=== PATIENT | female | born 1970 | race Caucasian/White ===

== ENCOUNTER 2019-07-30 17:01 | Emergency (ER) | payer OTHER ==
[2019-07-30] MEDS ORDERED: NA CHLORIDE 0.9% 500 ML ONE (17:55)
[2019-07-30] MEDS ORDERED: ONDANSETRON 4 MG/2 ML VIAL ONE (17:55)
[2019-07-30] MEDS ORDERED: FAMOTIDINE 20 MG/2 ML VIAL IV ONE (17:55)
[2019-07-30] MEDS ORDERED: MORPHINE 4 MG/ML SYR ONE ×2 (17:55→18:58)
[2019-07-30 18:01] LABS: Absolute Lymphocytes (CBC) 1.3 K/uL (0.7-4.9); Basophils % 0.2 % (0-1.3); Hematocrit 46.8 % (36.0-45.0); Lymphocytes % 7.6 % (15.3-44.8); RBC Red Blood Cell Count 5.08 M/uL (3.86-4.86)
[2019-07-30 18:26] LABS: Urine Blood NEGATIVE (NEG); Urine Glucose 2+ (NEG); Urine Protein 2+ (NEG)
[2019-07-30 18:27] LABS: Albumin 3.7 g/dL (3.4-5.0); Bilirubin Direct 1.3 mg/dL (0-0.2); Bilirubin Total 3.5 mg/dL (0.2-1.0); Potassium 3.7 mmol/L (3.5-5.1); Protein, Total 7.5 g/dL (6.4-8.2); Troponin I 0.04 ng/mL (0.0-0.045)
[2019-07-30 18:58] LABS: Blood Morphology Comment NOT SEEN (NOT SEEN); Platelet Estimate ADEQ; Urine White Blood Cell Casts OK
--- NOTE | 2019-07-30 19:20 | RAD REPORT ---
EXAM DESCRIPTION: CT - Abdomen Pelvis W Contrast - 07/30/2019 6:41 pm CLINICAL HISTORY: ABD PAIN COMPARISON: No comparisons TECHNIQUE: Biphasic, helical CT imaging of the abdomen and pelvis was performed following 100 ml non -ionic IV contrast. Oral contrast was given. All CT scans are performed using dose optimization technique as appropriate and may include automated exposure control or mA/KV adjustment according to patient size. FINDINGS: No suspicious findings in the lung bases. Heart size is prominent. No pericardial effusion . Enhancement of the solid abdominal viscera suggest a component of diminished cardiac function. Liver shows a somewhat mottled enhancement pattern believed to be related in part to decreased cardia c function. The initial 2 cm of the common hepatic artery show absent or substantially diminished enh ancement during arterial phase imaging. More distal hepatic artery branches opacify with contrast. No infarcted hepatic parenchyma seen. The liver has a slightly nodular contour. No focal lesion of the hepatic parenchyma. No portal vein thrombus. Far peripheral branches of the splenic artery in the spl enic hilum show absent or diminished enhancement on arterial phase imaging. Patient has dense calcifi cation in this region. The spleen shows very abnormal diminished enhancement. There is only a small p ortion of the medial superior spleen and very small patches if the inferior spleen that show normal e nhancement. No pancreatic or peripancreatic abnormality. Gallbladder is absent. Biliary tree within normal limits . Renal function is symmetric. There is no hydronephrosis or pyelonephritis. Origin of the right renal artery shows prominent atherosclerotic change and probable stenosis. Multiple areas of cortical thinn ing or cortical loss noted along the lateral right kidney. No acute stranding or edema. No obstructin g or nonobstructing calculi. No bladder abnormalities. No adrenal abnormalities. No gastric dilatation or gastric wall thickening. No dilated large or small bowel loops. No edema see n in the parra of the large or small bowel. Of the superior mesenteric artery shows no significant di sease and the origin of the celiac artery is intact. Patient has a patent inferior mesenteric artery. Mesenteric ischemia findings are not seen. No free air, free fluid or inflammatory stranding. No hernia, mass or bulky lymphadenopathy. Uterus and ovaries show no suspicious findings. No suspicious bony findings. Findings telephoned to the referring clinician 7:16 p.m.. IMPRESSION: No bowel obstruction free air or surgically emergent soft tissue finding. Clinic infarction pattern is present involving approximately 80% of the splenic parenchyma. Peripher al branches of the splenic artery show prominent atherosclerotic change with areas of occlusion or si gnificant flow restriction. The initial 2 cm of the common hepatic artery show occlusion or high-grade stenosis. More peripheral branches opacify with contrast. Origin of the celiac artery, the superior mesenteric artery in the inferior mesenteric artery are pat ent and without significant finding. Mesenteric ischemia of the bowel on not suspected. Extensive cortical loss involving the lateral aspect of the right kidney. The right renal artery show s significant atherosclerotic change and probable stenosis. Renal parenchymal loss could be from infa rction or prior infection. Liver has a mottled enhancement pattern without a focal lesion. This is probably a combination of the compromised vasculature and cardiac function.
--- NOTE | 2019-07-30 19:33 | RAD REPORT ---
EXAM DESCRIPTION: RAD - Chest Single View - 07/30/2019 7:08 pm CLINICAL HISTORY: CHEST PAIN, abdominal pain COMPARISON: No comparisons TECHNIQUE: AP portable chest image was obtained 07/30/2019 7:08 pm . FINDINGS: No peripheral mass or consolidation. Patient has pronounced cardiomegaly. Sternotomy wires are in place. Upper lobe vasculature within normal limits. Significant failure or volume overload ar e not suspected. No measurable pleural effusion and no pneumothorax. No acute bony abnormality seen. No acute aortic findings suspected. IMPRESSION: Prominent cardiomegaly without acute failure or volume overload findings.
[2019-07-30] MEDS ORDERED: CEFTRIAXONE/SWI 1gm 1 GM/10 ML SYR ONE (20:09)
[2019-07-30] MEDS ORDERED: LABETALOL 20 MG/4ML SYRINGE IV ONE (20:10)
[2019-07-30] MEDS ORDERED: HYDROMORPHONE HCL 2 MG/ML inj ONE (20:57)
--- NOTE | 2019-07-31 00:51 | ER ---
Nurse's Notes [facility] Name: Maricarmen Gupta Age: 49 yrs Sex: Female : 1970 Arrival Date: 07/30/2019 Time: 17:05 Bed 30 Private MD: Diagnosis: Splenic Infarction;Abdominal and pelvic pain Presentation: 07/30 17:08 Presenting complaint: Patient states: i am having abdominal pain that started around tw2 1pm today, nauseous and little bit of vomiting, like 3 times, i thought that it was my medication sitting and they are treating me for a possible rejection, i have a heart transplant, got it in 1997, i saw the doctor 2 weeks. Transition of care: patient was not received from another setting of care. Onset of symptoms was July 30, 2019. Risk Assessment: Do you want to hurt yourself or someone else? Patient reports no desire to harm self or others. Initial Sepsis Screen: Does the patient meet any 2 criteria? No. Patient's initial sepsis screen is negative. Does the patient have a suspected source of infection? No. Patient's initial sepsis screen is negative. Care prior to arrival: None. 17:08 Method Of Arrival: Ambulatory tw2 17:08 Acuity: HENRRY 2 tw2 Triage Assessment: 17:09 General: Appears uncomfortable, well groomed, Behavior is calm, cooperative, tw2 appropriate for age, quiet. Pain: Complains of pain in left upper quadrant and left lower quadrant. GI: Reports lower abdominal pain, upper abdominal pain, nausea. 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 tw2 Historical: - Allergies: 17:11 No Known Allergies; tw2 - Home Meds: 17:19 lamotrigine 200 mg oral tab 1 tab 2 times per day [Active]; duloxetine 30 mg oral cpDR tw2 1 cap once daily [Active]; rosuvastatin 10 mg oral tab 1 tab once daily [Active]; metoprolol tartrate 100 mg Oral tab 1 tab 2 times per day [Active]; prednisone 5 mg Oral tab once daily [Active]; lisinopril 20 mg Oral tab 1 tab once daily [Active]; zolpidem 5 mg Oral tab 0.5 tab once daily [Active]; levothyroxine 175 mcg tab 1 tab once daily [Active]; aspirin 81 mg Oral chew 1 tab once daily [Active]; lamotrigine 200 mg oral tab 0.5 tab 2 times per day [Active]; Levemir 100 unit/mL subcutaneous soln [Active]; - PMHx: 17:11 CHF; tw2 17:19 Diabetes - IDDM; Hyperlipidemia; Hypertension; tw2 - PSHx: 17:11 heart transplant; tw2 - Immunization history:: Adult Immunizations. - Coronavirus screen:: The patient has NOT traveled to [place], [place], or [place] in the past 14 days. - Social history:: Smoking status: . - Ebola Screening: : Patient denies travel to an Ebola-affected area in the 21 days before illness onset. Screenin:40 Abuse screen: Denies threats or abuse. Nutritional screening: No deficits noted. tw2 Tuberculosis screening: No symptoms or risk factors identified. Fall Risk None identified. Assessment: 17:59 GI: Bowel sounds present X 4 quads. Abdomen is tender to palpation in left upper ls4 quadrant. 18:14 Reassessment: Patient and/or family updated on plan of care and expected duration. Pain ls4 level reassessed. Patient is alert, oriented x 3, equal unlabored respirations, skin warm/dry/pink. pt pain improving. Pt has nausea. General: Appears uncomfortable. Neuro: No deficits noted. Cardiovascular: Denies chest pain, Capillary refill < 3 seconds Clubbing of nail beds is absent JVD is absent Patient's skin is warm and dry. Rhythm is sinus arrythmia. : No deficits noted. Derm: Skin is pink, warm \T\ dry. Musculoskeletal: No deficits noted. 21:42 Reassessment: Patient appears in no apparent distress at this time. Patient and/or ls4 family updated on plan of care and expected duration. Pain level reassessed. Patient is alert, oriented x 3, equal unlabored respirations, skin warm/dry/pink. Patient states symptoms have improved. Respiratory: Airway is patent Respiratory effort is even, unlabored, Respiratory pattern is regular. 22:25 Reassessment: Patient appears in no apparent distress at this time. Patient and/or ls4 family updated on plan of care and expected duration. Pain level reassessed. Patient is alert, oriented x 3, equal unlabored respirations, skin warm/dry/pink. 23:30 Reassessment: Patient appears in no apparent distress at this time. Patient and/or ls4 family updated on plan of care and expected duration. Pain level reassessed. Patient is alert, oriented x 3, equal unlabored respirations, skin warm/dry/pink. Pain: Complains of pain in left upper quadrant Pain currently is 3 out of 10 on a pain scale. 07/31 01:58 Reassessment: Pt is A\T\O x 4, resp unlabored, IV site intact, EMS at bedside for bb transfer to [facility]. Vital Signs: 07/30 17:10 BP 158 / 101; Pulse 69; Resp 17; Temp 97.9(O); Pulse Ox 99% on R/A; Weight 75.75 kg tw2 (R); Height 5 ft. 3 in. (160.02 cm); Pain 10/10; 18:00 BP 158 / 98; Pulse 72; Resp 16; Pulse Ox 100% on R/A; Pain 8/10; ls4 19:00 BP 164 / 97; Pulse 71; Resp 16; Temp 98.0; Pulse Ox 99% on R/A; Pain 5/10; ls4 20:00 BP 166 / 107; Pulse 72; Resp 14; Temp 98.0; Pulse Ox 99% on R/A; Pain 5/10; ls4 20:44 BP 151 / 96; Pulse 72; Resp 16; Pulse Ox 99% on R/A; Pain 5/10; ls4 21:42 BP 139 / 84; Pulse 73; Resp 14; Pulse Ox 99% on R/A; Pain 3/10; ls4 22:25 BP 124 / 78; Pulse 72; Resp 16; Pulse Ox 100% on R/A; Pain 3/10; ls4 23:41 BP 126 / 81; Pulse 72; Resp 14; Temp 98.0; Pulse Ox 99% on R/A; Pain 3/10; ls4 07/31 01:57 BP 127 / 58; Pulse 72; Resp 16 S; Temp 97.9(O); Pulse Ox 100% on 4 lpm NC; bb 07/30 17:10 Body Mass Index 29.58 (75.75 kg, 160.02 cm) tw2 ED Course: 07/30 17:05 Patient arrived in ED. mr 17:09 Triage completed. tw2 17:09 Arm band placed on. tw2 17:11 Bed in low position. Call light in reach. Side rails up X 1. Adult w/ patient. tw2 17:12 Kailash Sanderson [facility]NP-C [facility]. la1 17:12 Angelo Caruso MD is Attending Physician. la1 17:26 Alana Weinberg, RN is Primary Nurse. ls4 17:47 Basic Metabolic Panel Sent. ls4 17:47 CBC with Diff Sent. ls4 17:47 Creatinine for Radiology Sent. ls4 17:48 Hepatic Function Sent. ls4 17:48 Lipase Sent. 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 Pulse ox on. NIBP on. Warm blanket given. Diet: Patient is NPO. ls4 17:57 No provider procedures requiring assistance completed. Initial lab(s) drawn, by me, ls4 sent to lab. Urine collected: clean catch specimen, clear, EKG done, by ED staff. Inserted saline lock: 20 gauge in left antecubital area, using aseptic technique. Blood collected. 17:57 Patient maintains SpO2 saturation greater than 95% on room air. ls4 18:13 Troponin I Sent. ls4 18:37 Urine --Ancillary (enter results) Sent. mh5 18:38 Flu Sent. mh5 18:38 Urine Dipstick--Ancillary (enter results) Sent. mh5 18:38 Flu and/or RSV swab sent to lab. 5 21:28 initiated transfer with EVERETT randall to [facility]. She told me to send proof of patients old mw2 last name to verify it is the same patient. 22:21 called to get update on transfer to the [facility] Kathy stated she needed clinicals on patient. mw2 clinicals faxed. 22:41 Called [facility] to get update on Transfer [facility] said they have the clinicals in the ED waiting mw2 to get reviewed. 07/31 00:12 called [facility] spoke with Royal he said they are waiting for the to review the clinicals. mw2 02:00 Patient transferred, IV remains in place. bb Administered Medications: 07/30 17:50 Drug: morphine 4 mg Route: IVP; Site: left antecubital; ls4 18:20 Follow up: Response: No adverse reaction; Marked relief of symptoms ls4 17:50 Drug: Zofran 4 mg Route: IVP; Site: left antecubital; ls4 18:20 Follow up: Response: No adverse reaction; Marked relief of symptoms ls4 17:50 Drug: Pepcid 20 mg Route: IVP; Site: left antecubital; ls4 17:50 Drug: NS 0.9% 500 ml Route: IV; Rate: bolus; Site: left antecubital; ls4 18:57 Drug: morphine 4 mg Route: IVP; Site: left antecubital; ls4 19:30 Follow up: Response: No adverse reaction; Marked relief of symptoms ls4 20:03 Not Given (Duplicate Order): Rocephin 1 grams IV at calculated rate once; Given slow IV la1 push per pharmacy instructions 20:14 Drug: Rocephin 1 grams Route: IV; Rate: calculated rate; Site: left antecubital; ls4 21:00 Follow up: Response: No adverse reaction ls4 20:15 Drug: Labetalol 5 mg Route: IVP; Infused Over: 2 mins; Site: left antecubital; ls4 20:58 Follow up: Response: No adverse reaction; Marked relief of symptoms ls4 21:00 Follow up: Response: No adverse reaction; Blood pressure is lowered ls4 20:58 Drug: Dilaudid 0.5 mg Route: IVP; Site: left antecubital; ls4 Outcome: 02 00:51 ER care complete, transfer ordered by la1 01:59 Transferred by ground EMS to [facility] Transfer form completed. bb X-rays sent w/ patient. 01:59 Condition: stable 01:59 Instructed on the need for transfer. 02:00 Patient left the ED. bb Signatures: Jacqui Blackwell Brenda RN RN bb Kailash Sanderson, TUBE KNITTER-C TUBE KNITTER-Cla1 Kanika Menchaca RN RN tw2 Sherrie Reyes [address]SahshaSaint Joseph'S Hospitalbhavya 2 Alana Weinberg RN RN ls4 Corrections: (The following items were deleted from the chart) 07/30 17:15 17:08 Acuity: HENRRY 3 tw2 tw2
--- NOTE | 2019-07-31 00:52 | EDPHYS ---
Physician Documentation [facility] Name: Maricarmen Gupta Age: 49 yrs Sex: Female : 1970 Arrival Date: 07/30/2019 Time: 17:05 Bed 30 Private MD: ED Physician Angelo Caruso HPI: 07/30 17:34 This 49 yrs old Female presents to ER via Ambulatory with complaints of la1 Abdominal Pain, Vomiting. 17:34 The patient presents with abdominal pain in the upper abdomen, in the left upper la1 quadrant. Onset: The symptoms/episode began/occurred today. The symptoms radiate to the left flank. Associated signs and symptoms: Pertinent positives: nausea. The symptoms are described as sharp. Modifying factors: The symptoms are alleviated by nothing, the symptoms are aggravated by touching the area. Severity of pain: At its worst the pain was moderate. The patient has not experienced similar symptoms in the past. pt reports she began having left sided abd pain shortly after taking her prednisone for anti rejection. reports pain is now constant and worsening with nausea. 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 tw2 Historical: - Allergies: 17:11 No Known Allergies; tw2 - Home Meds: 17:19 lamotrigine 200 mg oral tab 1 tab 2 times per day [Active]; duloxetine 30 mg oral cpDR tw2 1 cap once daily [Active]; rosuvastatin 10 mg oral tab 1 tab once daily [Active]; metoprolol tartrate 100 mg Oral tab 1 tab 2 times per day [Active]; prednisone 5 mg Oral tab once daily [Active]; lisinopril 20 mg Oral tab 1 tab once daily [Active]; zolpidem 5 mg Oral tab 0.5 tab once daily [Active]; levothyroxine 175 mcg tab 1 tab once daily [Active]; aspirin 81 mg Oral chew 1 tab once daily [Active]; lamotrigine 200 mg oral tab 0.5 tab 2 times per day [Active]; Levemir 100 unit/mL subcutaneous soln [Active]; - PMHx: 17:11 CHF; tw2 17:19 Diabetes - IDDM; Hyperlipidemia; Hypertension; tw2 - PSHx: 17:11 heart transplant; tw2 - Immunization history:: Adult Immunizations. - Coronavirus screen:: The patient has NOT traveled to [place], [place], or [place] in the past 14 days. - Social history:: Smoking status: . - Ebola Screening: : Patient denies travel to an Ebola-affected area in the 21 days before illness onset. ROS: 17:36 Constitutional: Negative for fever, chills, and weight loss, Eyes: Negative for injury, la1 pain, redness, and discharge, ENT: Negative for injury, pain, and discharge, Neck: Negative for injury, pain, and swelling, Cardiovascular: Negative for chest pain, palpitations, and edema, Respiratory: Negative for shortness of breath, cough, wheezing, and pleuritic chest pain, Back: Negative for injury and pain, : Negative for injury, bleeding, discharge, and swelling, MS/Extremity: Negative for injury and deformity, Neuro: Negative for headache, weakness, numbness, tingling, and seizure. Exam: 17:37 Head/Face: Normocephalic, atraumatic. Eyes: extra-ocular motions intact. Periorbital la1 areas with no swelling, redness, or edema. ENT: Mucous membranes moist. Neck: Trachea midline,Supple, Chest/axilla: Normal chest wall appearance and motion. Nontender with no deformity. No lesions are appreciated. Cardiovascular: Regular rate and rhythm with a normal S1 and S2. Respiratory: Lungs have equal breath sounds bilaterally, clear to auscultation 17:37 Back: No spinal tenderness. No costovertebral tenderness. Full range of motion. Skin: Warm, dry with normal turgor. Normal color with no rashes, no lesions, and no evidence of cellulitis. MS/ Extremity: Pulses equal, no cyanosis. Neurovascular intact. Full, normal range of motion. Neuro: Awake and alert, GCS 15, oriented to person, place, time, and situation. Normal gait. 17:37 Constitutional: The patient appears alert, awake, uncomfortable. 17:37 Abdomen/GI: Inspection: abdomen appears normal, Bowel sounds: normal, in all quadrants, Palpation: soft, in all quadrants, mild abdominal tenderness, in the suprapubic area, left upper quadrant and left lower quadrant, Indicators: McBurney's point is not tender, Mejia's sign is negative, Rovsing's sign is negative, Obturator sign is negative, Psoas sign is negative. 18:02 ECG was reviewed by the Attending Physician. la1 Vital Signs: 17:10 BP 158 / 101; Pulse 69; Resp 17; Temp 97.9(O); Pulse Ox 99% on R/A; Weight 75.75 kg tw2 (R); Height 5 ft. 3 in. (160.02 cm); Pain 10/10; 18:00 BP 158 / 98; Pulse 72; Resp 16; Pulse Ox 100% on R/A; Pain 8/10; ls4 19:00 BP 164 / 97; Pulse 71; Resp 16; Temp 98.0; Pulse Ox 99% on R/A; Pain 5/10; ls4 20:00 BP 166 / 107; Pulse 72; Resp 14; Temp 98.0; Pulse Ox 99% on R/A; Pain 5/10; ls4 20:44 BP 151 / 96; Pulse 72; Resp 16; Pulse Ox 99% on R/A; Pain 5/10; ls4 21:42 BP 139 / 84; Pulse 73; Resp 14; Pulse Ox 99% on R/A; Pain 3/10; ls4 22:25 BP 124 / 78; Pulse 72; Resp 16; Pulse Ox 100% on R/A; Pain 3/10; ls4 23:41 BP 126 / 81; Pulse 72; Resp 14; Temp 98.0; Pulse Ox 99% on R/A; Pain 3/10; ls4 07 01:57 BP 127 / 58; Pulse 72; Resp 16 S; Temp 97.9(O); Pulse Ox 100% on 4 lpm NC; bb 07/30 17:10 Body Mass Index 29.58 (75.75 kg, 160.02 cm) tw2 MDM: 07/30 17:21 Patient medically screened. la1 22:28 ED course: called [facility] at 1950, [facility] and we should [facility] out to them, [facility] after and have been waiting on a return call, have called back twice, awaiting return phone call. 07/31 00:49 Data reviewed: vital signs, nurses notes, lab test result(s), radiologic studies, I la1 have discussed the patient's presentation/case with the attending Emergency Department Physician; and as a result, I will admit patient. Data interpreted: Pulse oximetry: on room air is 100 %. Interpretation: normal. Counseling: I had a detailed discussion with the patient and/or guardian regarding: the need to transfer to another facility, [facility] does not immediately have the required specialist. ED course: Dr. Chris at the [facility] accepted.. 07/30 17:25 Order name: Basic Metabolic Panel la07/30 17:25 Order name: CBC with Diff la07/30 17:25 Order name: Creatinine for Radiology la07/30 17:25 Order name: Hepatic Function la07/30 17:25 Order name: Lipase la07/30 17:25 Order name: Troponin I la07/30 18:10 Order name: CBC with Automated Diff; Complete Time: 19:15 EDMS 07/30 18:11 Order name: Urine Dipstick--Ancillary (enter results) em07/30 18:11 Order name: Urine --Ancillary (enter results) em07/30 18:24 Order name: Flu la07/30 18:26 Order name: Creatinine (Radiology Only); Complete Time: 18:37 EDMS 07/30 18:30 Order name: Basic Metabolic Panel; Complete Time: 18:37 EDMS 07/30 18:30 Order name: Liver (Hepatic) Function; Complete Time: 18:37 EDMS 07/30 18:30 Order name: Troponin I; Complete Time: 18:37 EDMS 07/30 17:25 Order name: CT Abd/Pelvis - IV Contrast Only la07/30 18:24 Order name: Chest Single View XRAY la07/30 18:30 Order name: Lipase; Complete Time: 18:37 EDMS 07/30 18:30 Order name: Urine --Ancillary; Complete Time: 18:37 EDMS 07/30 18:30 Order name: Urine Dipstick-Ancillary; Complete Time: 18:37 EDMS 07/30 19:00 Order name: CBC Smear Scan; Complete Time: 19:15 EDMS 07/30 19:16 Order name: Influenza Screen (A ; Complete Time: 19:22 EDMS 07/30 20:55 Order name: CT; Complete Time: 21:01 EDMS 07/30 20:55 Order name: RAD; Complete Time: 21:01 EDMS 07/30 17:25 Order name: IV Saline Lock; Complete Time: 17:48 la07/30 17:25 Order name: Labs collected and sent; Complete Time: 17:48 la07/30 17:25 Order name: EKG; Complete Time: 17:26 la07/30 17:25 Order name: EKG - Nurse/Tech; Complete Time: 18:13 la1 07/30 17:25 Order name: Urine Dipstick-Ancillary (obtain specimen); Complete Time: 18:08 la07/30 17:25 Order name: Urine Test (obtain specimen); Complete Time: 18:08 la EC/06 18:02 Rate is 68 beats/min. Rhythm is regular. Left axis deviation noted. PA interval is la1 normal. QRS interval is normal. QT interval is prolonged. No Q waves. T waves are Normal. No ST changes noted. Clinical impression: Sinus rhythm with Bifasicular block. Interpreted by me. Reviewed by me. Administered Medications: 17:50 Drug: morphine 4 mg Route: IVP; Site: left antecubital; ls4 18:20 Follow up: Response: No adverse reaction; Marked relief of symptoms ls4 17:50 Drug: Zofran 4 mg Route: IVP; Site: left antecubital; ls4 18:20 Follow up: Response: No adverse reaction; Marked relief of symptoms ls4 17:50 Drug: Pepcid 20 mg Route: IVP; Site: left antecubital; ls4 17:50 Drug: NS 0.9% 500 ml Route: IV; Rate: bolus; Site: left antecubital; ls4 18:57 Drug: morphine 4 mg Route: IVP; Site: left antecubital; ls4 19:30 Follow up: Response: No adverse reaction; Marked relief of symptoms ls4 20:03 Not Given (Duplicate Order): Rocephin 1 grams IV at calculated rate once; Given slow IV la1 push per pharmacy instructions 20:14 Drug: Rocephin 1 grams Route: IV; Rate: calculated rate; Site: left antecubital; ls4 21:00 Follow up: Response: No adverse reaction ls4 20:15 Drug: Labetalol 5 mg Route: IVP; Infused Over: 2 mins; Site: left antecubital; ls4 20:58 Follow up: Response: No adverse reaction; Marked relief of symptoms ls4 21:00 Follow up: Response: No adverse reaction; Blood pressure is lowered ls4 20:58 Drug: Dilaudid 0.5 mg Route: IVP; Site: left antecubital; ls4 Disposition: 07/31/19 00:51 Transfer ordered to [facility]. Diagnosis are Splenic Infarction, Abdominal and pelvic pain. - Reason for transfer: Higher level of care. - Accepting physician is Dr. Chris. - Condition is Stable. - Problem is new. - Symptoms are unchanged. Addendum: 08/01/2019 07:28 Co-signature as Attending Physician, Angelo Caruso MD. r n Signatures: Dispatcher [employer] EDMaria G Dickens RN RN bb Angelo Caruso MD MD rn Kailash Sanderson, MEMO-C FUR TRIMMER-Cla1 Kanika Menchaca RN RN tw2 Alana Weinberg RN RN ls4 Corrections: (The following items were deleted from the chart) 07/31 02:00 00:51 07/31/2019 00:51 [facility] Diagnosis bb is Splenic Infarction; Abdominal and pelvic pain. Reason for transfer: Higher level of care. Accepting physician is Dr. Chris. Condition is Stable. Problem is new. Symptoms are unchanged. la1
[2019-07-31 02:32] VITALS: BP 127/58; TEMP 97.9; O2SAT 100
--- NOTE | 2019-07-31 08:45 | EKG ---
Test Date: 2019-07-30 Test Time: 17:50:26 Farm Management Teacher: PIYUSH MEASUREMENT RESULTS: Intervals: Rate: 68 MA: 164 QRSD: 152 QT: 470 QTc: 499 Malone: P: 31 MA: 164 QRS: -62 T: 74 INTERPRETIVE STATEMENTS: Normal sinus rhythm Right bundle branch block Left axis Abnormal ECG No previous ECG available for comparison Electronically Signed On 07-31-19 08:44:38 RENT AND MISCELLANEOUS REMITTANCE CLERK by Richard Villa
== END 2019-07-31 02:00 ==
LOC: ER 17:01
DX: D73.5 Infarction of spleen (principal); R10.2 Pelvic and perineal pain; I10 Essential (primary) hypertension; E11.9 Type 2 diabetes mellitus without complications; E78.5 Hyperlipidemia, unspecified; Z94.1 Heart transplant status; Z79.4 Long term (current) use of insulin; Z79.82 Long term (current) use of aspirin
CPT/HCPCS: 93005; 85025; 80048; 36415; 81025; 80076; 81003; 84484; 83690; 87804 ×2; 74177; 71045; 96375; 96374; 99285; Q9967; J1170; J0696; J7040; J2405